=== PATIENT | male | born 1955 | race Caucasian/White ===

== ENCOUNTER 2023-02-08 20:01 | Emergency (ER) | payer OTHER ==
[2023-02-08] MEDS ORDERED: Bacitracin Oint 1 GM U/D Packet TOP ONE (20:59)
[2023-02-08] MEDS ORDERED: Diphtheria,Pertussis(Acell),Tetanus Vaccine 0.5 ML Syringe IM ONE (20:59)
[2023-02-08] MEDS ORDERED: Lidocaine 1% with EPINEPHrine 1:100,000 50 ML MDV SUBCUT STA (20:59)
== END 2023-02-08 21:52 | disposition home or self-care (01) ==
LOC: JP.ED 20:01
DX: S51.011A Laceration without foreign body of right elbow, initial encounter (principal); E78.00 Pure hypercholesterolemia, unspecified; Z23 Encounter for immunization; Z87.891 Personal history of nicotine dependence; Z79.82 Long term (current) use of aspirin; Z88.5 Allergy status to narcotic agent; Z79.899 Other long term (current) drug therapy; W01.0XXA Fall on same level from slipping, tripping and stumbling without subsequent striking against object, initial encounter
CPT/HCPCS: 12002; 90471; 90715; 99283-25